=== PATIENT | female | born 1995 | race Asian ===

== ENCOUNTER 2018-07-22 23:08 | Outpatient (CLI) | payer OTHER | END 2018-07-22 23:10 | disposition short-term general hospital (02) | LOC: AMB 23:08 | DX: M54.5 Low back pain (principal); R10.819 Abdominal tenderness, unspecified site; Y04.8XXA Assault by other bodily force, initial encounter; Y92.018 Other place in single-family (private) house as the place of occurrence of the external cause | CPT/HCPCS: A0425; A0427 ==

== ENCOUNTER 2018-07-22 23:26 | Emergency (ER) | payer OTHER ==
[~2018-07-22] VITALS: Ht 157.5 cm; Wt 55.8 kg
[2018-07-23 01:13] VITALS: BP 106/57; TEMP 98.1
== END 2018-07-23 01:14 | disposition home or self-care (01) ==
LOC: ED 23:26
DX: S30.0XXA Contusion of lower back and pelvis, initial encounter (principal); Y04.8XXA Assault by other bodily force, initial encounter; Y92.098 Other place in other non-institutional residence as the place of occurrence of the external cause
CPT/HCPCS: 99283